=== PATIENT | male | born 1990 | race Caucasian/White ===

== ENCOUNTER 2019-08-20 14:31 | Emergency (ER) | payer OTHER ==
[~2019-08-20] VITALS: Ht 170.2 cm; Wt 113.4 kg
[2019-08-20] MEDS ORDERED: REMERON15 M2 PO (14:43)
[2019-08-20] MEDS ORDERED: ZYPREXA2.5 MG PO (14:44)
[2019-08-20 15:25] LABS: ABSOLUTE BASOPHILS 0.1 thou/uL (0.0-0.2); ABSOLUTE EOSINOPHILS 0.1 thou/uL (0.0-0.7); ABSOLUTE LYMPHOCYTES 1.2 thou/uL (0.8-5.3); ABSOLUTE MONOCYTES 0.8 thou/uL (0.0-1.2); ABSOLUTE NEUTROPHILS 9.8 thou/uL (1.6-8.1); BASOPHILS 0.4 %; EOSINOPHILS 0.8 %; HEMATOCRIT 46.2 % (42.0-52.0); HEMOGLOBIN 16.1 gm/dL (14.0-18.0); LYMPHOCYTES 9.8 %; MCH 31.8 pg (26.0-34.0); MCV 91.1 fL (80.0-100.0); MONOCYTES 6.9 %; MPV 9.3 fl. (7.2-11.1); NUCLEATED RBCS 0 /100WBC; PLATELET COUNT* 225 thou/uL (150-400); POLYS 82.1 %; RBC 5.07 mil/uL (4.50-6.00); RDW-CV 13.6 % (10.5-14.5); WBC 11.9 thou/uL (4.0-11.0)
[2019-08-20 15:33] LABS: CALCIUM 8.7 mg/dL (8.5-10.1); CREATININE 1.2 mg/dL (0.6-1.3); POTASSIUM 3.6 mmol/L (3.5-5.1)
[2019-08-20 15:35] LABS: PROTIME 10.7 Seconds (9.20-11.50)
[2019-08-20 15:44] LABS: ALBUMIN 3.8 g/dL (3.4-5.0); TOTAL BILIRUBIN 0.7 mg/dL (<0.1-1.0); TOTAL PROTEIN 7.9 g/dL (6.4-8.2)
--- NOTE | 2019-08-20 15:57 | EKG ---
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: : 1990 Requested By: Jannet Galvez Order Number: [id number] MD: John Diaz Measurements Intervals [place] Rate: 121 P: 43 AK: 152 QRS: -44 QRSD: 97 T: 44 QT: 326 QTc: 463 Interpretive Statements Sinus tachycardia Atrial premature complex Inferior infarct, old Baseline wander in lead(s) V1 No previous ECG available for comparison Electronically Signed On 08-20-2019 15:55:32 CDT by John Diaz [email or web address] <ELECTRONICALLY SIGNED> By: John Diaz MD, [facility] 08/20/19 1555 1437 1437 John Diaz MD, [facility] /EPI
[2019-08-20 16:57] LABS: AMP/METHAMP POSITIVE (Negative); BARBITURATES Negative (Negative); BENZODIAZEPINES Negative (Negative); COCAINE Negative (Negative); METHADONE Negative (Negative); OPIATES Negative (Negative); PCP Negative (Negative); THC POSITIVE (Negative)
[2019-08-20 17:17] VITALS: BP 128/86
== END 2019-08-20 17:18 | disposition left against medical advice (07) ==
LOC: M.ERS 14:31
PROVIDERS: Personal Emergency Response Attendant
DX: K85.90 Acute pancreatitis without necrosis or infection, unspecified (principal); F15.10 Other stimulant abuse, uncomplicated; R42 Dizziness and giddiness; J45.909 Unspecified asthma, uncomplicated; F41.9 Anxiety disorder, unspecified; Z88.6 Allergy status to analgesic agent